=== PATIENT | female | born 2000 | race Caucasian/White ===

== ENCOUNTER 2022-07-15 12:19 | Inpatient (IN) | payer OTHER ==
[~2022-07-15] VITALS: Ht 160 cm; Wt 83.5 kg
[2022-07-15] MEDS ORDERED: OXYTOCIN 30 UNITS/500ML NS PMX 500 ML IV SCH ×3 (13:30→20:00)
[2022-07-15] MEDS ORDERED: LIDOCAINE HCL 1% 20ML VIAL (Pyxis) INJ INFIL SCH (13:30)
[2022-07-15] MEDS ORDERED: METHYLERGONOVINE MALEATE 0.2 MG/ML IM PRN (13:30)
[2022-07-15] MEDS ORDERED: CARBOPROST TROMETHAMINE 250 MCG/ML AMPUL IM PRN (13:30)
[2022-07-15] MEDS ORDERED: NALOXONE HCL 0.4 MG/ML 1ML VIAL IM PRN (13:30)
[2022-07-15] MEDS ORDERED: MISOPROSTOL 100MCG TABLET VG SCH (13:30)
[2022-07-15] MEDS ORDERED: BUTORPHANOL TARTRATE 2 MG/ML VIAL IV PRN (13:30)
[2022-07-15 14:05] LABS: BASOPHILS % 0.5 % (0.0-2.0); EOSINOPHILS % 0.3 % (0.0-5.0); HEMATOCRIT. 33.6 % (36.0-48.0); HEMOGLOBIN. 11.2 g/dL (12.0-16.0); MEAN CORPUSCULAR HEMOGLOBIN 27.8 pg (28.0-32.0); MEAN CORPUSCULAR VOLUME 83.6 fL (81.0-99.0); MEAN PLATELET VOLUME 9.7 fl (7.4-10.4); MONOCYTES % 7.9 % (2.0-8.0); NEUTROPHILS % 75.3 % (40.0-76.0); PLATELET 282 x1000/uL (130-400); RED BLOOD CELL COUNT 4.02 mill/uL (4.2-5.4); RED CELL DISTRIBUTION WIDTH 14.6 % (11.6-14.6)
[2022-07-15 14:06] LABS: CLARITY URINE CLEAR (CLEAR); COLOR URINE YELLOW (YELLOW); KETONES URINE NEGATIVE (NEGATIVE); LEUKOCYTE ESTERASE URINE TRACE (NEGATIVE); NITRITE URINE NEGATIVE (NEGATIVE); OCCULT BLOOD URINE NEGATIVE (NEGATIVE); PROTEIN URINE NEGATIVE (NEGATIVE); SPECIFIC GRAVITY URINE 1.013 (1.005-1.030); UROBILINOGEN URINE 0.2 E.U./dL (0.2-1.0)
[2022-07-15] MEDS ORDERED: ROPIVACAINE HCL/PF EPIDURAL 200 ML EPI SCH (14:15)
[2022-07-15 14:17] LABS: *AMPHETAMINES SCREEN URINE NEGATIVE (NEGATIVE); *BARBITURATES SCREEN URINE NEGATIVE (NEGATIVE); *BENZODIAZEPINES SCREEN URINE NEGATIVE (NEGATIVE); *COCAINE SCREEN URINE NEGATIVE (NEGATIVE); METHADONE URINE SCREEN NEGATIVE (NEGATIVE); OPIATES URINE SCREEN NEGATIVE (NEGATIVE); PHENCYCLIDINE URINE SCREEN NEGATIVE (NEGATIVE)
[2022-07-15 14:20] LABS: CANNABINOID URINE SCREEN PRESUMTIVE POSITIVE (NEGATIVE)
[2022-07-15] MEDS ORDERED: ROPIVACAINE HCL/PF EPIDURAL 200 ML EPI ONE (14:26)
[2022-07-15] MEDS: LACTATED RINGERS 1,000 ML IV SCH ×2 (14:44→15:09)
[2022-07-15 16:53] LABS: PARTIAL THROMBOPLASTIN TIME 27.2 sec (23.4-31.0); PROTHROMBIN TIME 10.3 sec (9.6-11.0)
[2022-07-15 17:17] LABS: HEPATITIS B SURFACE ANTIGEN NEGATIVE
[2022-07-15 19:40] VITALS: BP 115/69
[2022-07-15] MEDS ORDERED: DIPHENHYDRAMINE 25MG CAPSULE PO PRN (20:00)
[2022-07-15] MEDS ORDERED: BENZOCAINE/LANOLIN/ALOE VERA SPRAY TOP PRN (20:00)
[2022-07-15] MEDS ORDERED: HEMORRHOIDAL SUPP PR PRN (20:00)
[2022-07-15] MEDS ORDERED: BISACODYL 10MG SUPP PR PRN (20:00)
[2022-07-15] MEDS ORDERED: LANOLIN OINT 7GM TUBE TOP PRN (20:00)
[2022-07-15] MEDS ORDERED: RHO(D) IMMUNE GLOBULIN 300 MCG/SYR IM PRN (20:00)
[2022-07-15] MEDS ORDERED: IBUPROFEN 400MG TABLET PO PRN (20:00)
[2022-07-15] MEDS ORDERED: OXYCODONE HCL/ACETAMINOPHEN 5/325MG TABLET PO PRN (20:00)
[2022-07-15] MEDS ORDERED: GLYCERIN/WITCH HAZEL LEAF MEDICATED PAD TOP PRN (20:00)
[2022-07-15] MEDS: MAGNESIUM/ALUMINUM HYDROXIDE/SIMETHICONE 30ML UDC PO SCH (21:37)
[2022-07-15] MEDS: DOCUSATE SODIUM 100MG CAPSULE PO SCH (21:37)
[2022-07-15] MEDS: IBUPROFEN 800MG TABLET PO PRN (21:38)
[2022-07-15] MEDS: SIMETHICONE 80MG TABLET CHEW PO SCH (21:39)
[2022-07-16 04:00] VITALS: BP 117/81
[2022-07-16 07:05] LABS: BASOPHILS % 0.2 % (0.0-2.0); EOSINOPHILS % 0.9 % (0.0-5.0); HEMATOCRIT. 28.2 % (36.0-48.0); HEMOGLOBIN. 9.3 g/dL (12.0-16.0); LYMPHOCYTES % 20.8 % (20.0-50.0); MEAN CORPUSCULAR HEMOGLOBIN 27.4 pg (28.0-32.0); MEAN PLATELET VOLUME 9.4 fl (7.4-10.4); MONOCYTES % 9.1 % (2.0-8.0); PLATELET 247 x1000/uL (130-400); RED CELL DISTRIBUTION WIDTH 14.7 % (11.6-14.6)
[2022-07-16 07:30] VITALS: BP 117/78
[2022-07-16] MEDS: MAGNESIUM/ALUMINUM HYDROXIDE/SIMETHICONE 30ML UDC PO SCH ×4 (08:14→21:00)
[2022-07-16] MEDS: FERROUS SULFATE 325MG TABLET PO SCH ×3 (08:15→17:10)
[2022-07-16] MEDS: PRENATAL VIT/FE FUMARATE/FA TABLET PO SCH (08:15)
[2022-07-16] MEDS: SIMETHICONE 80MG TABLET CHEW PO SCH ×4 (08:15→21:10)
[2022-07-16] MEDS: IBUPROFEN 800MG TABLET PO PRN (13:02)
[2022-07-16 16:00] VITALS: BP 124/74
[2022-07-16 20:00] VITALS: BP 116/67
[2022-07-16] MEDS: DOCUSATE SODIUM 100MG CAPSULE PO SCH (21:10)
[2022-07-17] MEDS: IBUPROFEN 800MG TABLET PO PRN ×2 (03:17→09:25)
[2022-07-17 03:30] VITALS: BP 112/62
[2022-07-17 08:00] VITALS: BP 116/72
[2022-07-17] MEDS: PRENATAL VIT/FE FUMARATE/FA TABLET PO SCH (09:00)
[2022-07-17] MEDS: FERROUS SULFATE 325MG TABLET PO SCH (09:25)
[2022-07-17] MEDS: SIMETHICONE 80MG TABLET CHEW PO SCH (09:25)
[2022-07-17] MEDS: MAGNESIUM/ALUMINUM HYDROXIDE/SIMETHICONE 30ML UDC PO SCH (09:25)
== END 2022-07-17 13:00 | disposition home or self-care (01) | DRG 560 ==
LOC: OBSVTOIN 12:19 → 8 EST LDRP 12:19 → 8EST 19:30
PROVIDERS: ADMIT Obstetrics & Gynecology; ATTEND Obstetrics & Gynecology
PROC: 10E0XZZ Delivery of Products of Conception, External Approach (ICD-10-PCS; principal; 2022-07-15)
PROC: 3E0R3BZ Introduction of Anesthetic Agent into Spinal Canal, Percutaneous Approach (ICD-10-PCS; 2022-07-15)
PROC: 00HU33Z Insertion of Infusion Device into Spinal Canal, Percutaneous Approach (ICD-10-PCS; 2022-07-15)
PROC: 3E0234Z Introduction of Serum, Toxoid and Vaccine into Muscle, Percutaneous Approach (ICD-10-PCS; 2022-07-16)
DX: O48.0 Post-term pregnancy (principal); Z37.0 Single live birth; O26.893 Other specified pregnancy related conditions, third trimester; O77.0 Labor and delivery complicated by meconium in amniotic fluid; Z20.822 Contact with and (suspected) exposure to COVID-19; Z3A.41 41 weeks gestation of pregnancy; Z67.41 Type O blood, Rh negative
CPT/HCPCS: 36415; 80305; 80349; 81003; 85025; 86592; 86703; 86762; 86850; 86886; 86900; 87340; 87426; 90384; J0595; J2795; J7120; A4315; J2590; J2791